=== PATIENT | female | born 1960 ===

== ENCOUNTER 2018-07-04 08:39 | Day surgery (SDC) | payer MEDICAID ==
[2018-06-28 09:52] VITALS: BMI 34.0
[2018-07-04] MEDS ORDERED: Propofol 10 mg/ml Inj (20 ML) ONE (10:31)
[2018-07-04] MEDS ORDERED: Midazolam 2 MG/2 ML VIAL ONE (10:31)
[2018-07-04] MEDS ORDERED: Sodium Chloride 0.9% 0 ML IV ONE (10:39)
[2018-07-04] MEDS: Lactated Ringer's 1,000 ML IV ONE (10:43)
[2018-07-04] MEDS: cefTRIAXone (Rocephin) 1 gm Inj ONE (10:50)
[2018-07-04] MEDS ORDERED: Succinylcholine 200 mg/10 ml Inj IV ONE (10:52)
[2018-07-04] MEDS ORDERED: HYDROmorphone 0.5 mg/0.5 ml ISec IVP PRN (11:23)
[2018-07-04] MEDS ORDERED: Lactated Ringer's 1,000 ML IV SCH (11:30)
[2018-07-04 12:39] VITALS: RESP 18
[2018-07-04 13:26] VITALS: BP 122/78; PULSE 58; TEMP 98; O2SAT 99
--- NOTE | 2018-07-04 20:13 | OP ---
PROCEDURE DATE: 07/04/2018 PREOPERATIVE DIAGNOSIS: Overactive bladder with frequency, urgency and urge incontinence. POSTOPERATIVE DIAGNOSIS: Overactive bladder with frequency, urgency and urge incontinence. PROCEDURE PERFORMED: Cystoscopy with intravesical Botox injections. DESCRIPTION OF PROCEDURE: The patient was placed on the operating room table in a dorsal lithotomy position, given general anesthesia. The area of the groin was draped and prepped in a sterile manner. At this time, I had a premixed sample of 100 units of Botox which was into 12 mL of reconstituted fluid. At this time, then I entered into the bladder, identified the ureteral orifices and starting lateral to the ureteral orifices and going across in three rows, I injected 0.5 mL in each of the openings to complete the 12 mL use were injected. Once this was done, I removed the cystoscope. The patient then was taken from the operating room in good condition. Albert Lewis MD
== END 2018-07-04 13:35 | disposition home or self-care (01) ==
LOC: H.OPSURG 08:39
PROVIDERS: ATTEND Urology
DX: N32.81 Overactive bladder (principal); N39.41 Urge incontinence; E66.9 Obesity, unspecified; E03.9 Hypothyroidism, unspecified; I10 Essential (primary) hypertension
CPT/HCPCS: 52287; J0588; J0696; J2001; J2250; J2704; J3010; J7120